=== PATIENT | female | born 1945 | race Caucasian/White ===

== ENCOUNTER → 2017-08-25 | Outpatient (CLI) | payer MEDICARE ==
[2014-06-04 00:15] VITALS: BP 184/74
--- NOTE | 2017-08-25 14:16 | RAD ---
Examination: Ultrasound bilateral lower extremity venous duplex History: History of spider veins on both lower extremities Comparison: None available Technique: Grayscale, color Doppler 2-D, spectral waveform analysis of the bilateral lower extremity venous system were performed Findings: The visualized common femoral vein, superficial femoral vein, popliteal vein demonstrate normal compression and augmentation of flow. The visualized calf veins are patent. Impression: No evidence of deep venous thrombosis identified in the visualized bilateral lower extremity venous system.
--- NOTE | 2017-08-25 14:19 | RAD ---
Examination: Ultrasound bilateral lower extremity venous reflux study History: History of spider veins Comparison: None available Findings: The right greater saphenous vein and the saphenofemoral junction measures 6.8 mm in diameter. The proximal great saphenous vein measures 5.1 mm. The right lesser saphenous vein measures 2.4 mm in diameter. The left greater saphenous vein and the saphenofemoral junction measures 6.7 mm in diameter. The proximal greater saphenous vein measures 7.1 mm in diameter.The lesser saphenous vein measures 5.3 mm in diameter. No evidence of reflux identified in the greater saphenous vein and the lesser saphenous vein bilaterally. Impression: Negative exam for reflux.
== END | disposition home or self-care (01) ==
LOC: US 12:45
PROVIDERS: ATTEND Nurse Practitioner Family
DX: I83.93 Asymptomatic varicose veins of bilateral lower extremities (principal)
CPT/HCPCS: 93970

== ENCOUNTER → 2021-10-20 | Outpatient (CLI) | payer MEDICARE ==
[2014-06-04 00:15] VITALS: BP 184/74
--- NOTE | 2021-10-28 12:00 | RAD ---
INDICATION: 76 years of age asymptomatic female patient presents for screening mammography. No person al family history of breast cancer TECHNIQUE: Full field craniocaudal and mediolateral oblique images of both breasts were obtained usi ng digital technique with tomosynthesis and also analyzed with computer-aided detection software. COMPARISON: Prior mammographic imaging dating back to August 20, 2014. BREAST COMPOSITION: Category A: The breasts are predominantly fatty. FINDINGS: No suspicious masses, microcalcifications or architectural distortion is present to suggest malignanc y in either breast. The visualized axillae are unremarkable. IMPRESSION: No mammographic evidence of malignancy. RECOMMENDATION: Annual screening mammography is recommended, unless clinically indicated sooner based on symptoms or change in physical exam. BIRADS 1: NEGATIVE This study was interpreted with the benefit of Computerized Aided Detection (CAD). Patient information is entered into the reminder system with a target due date for the next screening mammogram. Mammography is the most sensitive method for finding small breast cancers, but it does not detect the m all and is not a substitute for careful clinical examination. A negative mammogram does not negate a clinically suspicious finding and should not result in delay in biopsying a clinically suspicious a bnormality. "Our facility is accredited by the [employer] Mammography Program." Electronically signed by: Ruel Browne DO (10/28/2021 11:58 AM) [id number]
== END ==
LOC: MAMMO 10:49
PROVIDERS: ATTEND Physician Assistant Medical
DX: Z12.31 Encounter for screening mammogram for malignant neoplasm of breast (principal)
CPT/HCPCS: 77063; 77067